=== PATIENT | female | born 1990 | race Caucasian/White ===

== ENCOUNTER 2017-09-16 01:12 | Emergency (ER) | payer OTHER ==
[2017-09-16] MEDS ORDERED: IBUPROFEN 600 MG TABLET (FP) PO ONE ×2 (02:11→02:48)
--- NOTE | 2017-09-16 02:14 | PDOC ---
History of Present Illness - General Chief Complaint: Ear Problem Stated Complaint: EAR PAIN Time Seen by Provider: 09/16/17 01:58 History Source: Patient - History of Present Illness Initial Comments: 09/16/17 02:37 26-year-old female complaining of left ear pain and nasal congestion with throat pain 1 day. Patient reports fever tmax 101 at home. patient put hylands ear drops with minimal imporvement in pain. Past History - Past Medical History Allergies/Adverse Reactions: Allergies Allergy/AdvReac Type Severity Reaction Status Date / Time Sulfa (Sulfonamide Allergy Intermediate Hives Verified 09/16/17 02:19 Antibiotics) Home Medications: Ambulatory Orders No Home Medications 0 dose .ROUTE UTDICT 08/02/13 Amoxicillin - [Amoxicillin 875mg Tablet -] 875 mg PO BID #20 tablet 09/16/17 Ibuprofen 600 mg PO QID PRN #20 tablet 09/16/17 Asthma: No Cancer: No Cardiac Disorders: No Diabetes: No HTN: No Seizures: No Thyroid Disease: No - Reproductive History (#): 1 Para: 1 Cervical CA: No Dysfunctional Uterine Bleeding: No Ectopic : No Endometrial CA: No Polycystic Ovaries: No Therapeutic (s) & number: No Tubal Ligation: No Spontaneous : 0 - Suicide/Smoking/Psychosocial Hx Smoking Status: No Smoking History: Never smoked Number of Cigarettes Smoked Daily: 0 Hx Alcohol Use: No Drug/Substance Use Hx: No Hx Substance Use Treatment: No *Physical Exam - Vital Signs 09/16/17 02:41 Last Vital Signs Temp Pulse Resp BP Pulse Ox 99.5 F 71 19 129/75 100 09/16/17 01:45 09/16/17 01:45 09/16/17 01:45 09/16/17 01:45 09/16/17 01:45 - Physical Exam General Appearance: Yes: Appropriately Dressed HEENT: positive: TM Bulging, TM Dull (left TM erythema, ) Cardiovascular: positive: Regular Rhythm, Regular Rate *DC/Admit/Observation/Transfer Diagnosis at time of Disposition: Left otitis media Qualifiers: Otitis media type: suppurative Chronicity: acute Recurrence: not specified as recurrent Spontaneous tympanic membrane rupture: without spontaneous rupture Qualified Code(s): H66.002 - Acute suppurative otitis media without spontaneous rupture of ear drum, left ear - Discharge Dispostion Disposition: HOME Condition at time of disposition: Fair - Prescriptions Prescriptions: Amoxicillin - [Amoxicillin 875mg Tablet -] 875 mg PO BID #20 tablet Ibuprofen 600 mg PO QID PRN #20 tablet PRN Reason: Pain - Referrals Referrals: Niki Bowen MD [Primary Care Provider] - Call tomorrow - Patient Instructions Printed Discharge Instructions: Middle Ear Infection Additional Instructions: Take ibuprofen as prescribed Take amoxicillin as prescribed Follow up with you doctor as soon as possible - Post Discharge Activity Forms/Work/School Notes: Back to Work
[2017-09-16 02:21] VITALS: BP 129/75; PULSE 71; TEMP 99.5; BMI 34.5
== END 2017-09-16 03:13 | disposition home or self-care (01) ==
LOC: JER 01:12
DX: H66.002 Acute suppurative otitis media without spontaneous rupture of ear drum, left ear (principal)
CPT/HCPCS: 87070; 87430; 99281-25

== ENCOUNTER 2018-09-25 09:07 | Emergency (ER) | payer OTHER ==
[2018-09-25 09:15] VITALS: TEMP 97.9; BMI 33.6
--- NOTE | 2018-09-25 09:31 | PDOC ---
History of Present Illness - General Chief Complaint: Vaginal Bleeding Stated Complaint: 8 WK PREG / BLEED Time Seen by Provider: 09/25/18 09:20 History Source: Patient Exam Limitations: No Limitations - History of Present Illness Initial Comments: 09/25/18 09:27 27F at 8-9 weeks by LMP w/o confirmed IUP presents with 3 hours of vaginal spotting and lower abdominal cramping w/o vomiting, other abd pain, fever, chills, CP, SOB. Pt endorses nausea but states she had it during her previous . She denies blood clots. Past History - Past Medical History Allergies/Adverse Reactions: Allergies Allergy/AdvReac Type Severity Reaction Status Date / Time Sulfa (Sulfonamide Allergy Intermediate Hives Verified 09/25/18 09:08 Antibiotics) Asthma: No Cancer: No Cardiac Disorders: No Diabetes: No HTN: No Seizures: No Thyroid Disease: No - Reproductive History (#): 1 Para: 1 Cervical CA: No Dysfunctional Uterine Bleeding: No Ectopic : No Endometrial CA: No Polycystic Ovaries: No Therapeutic (s) & number: No Tubal Ligation: No Spontaneous : 0 - Suicide/Smoking/Psychosocial Hx Smoking Status: No Smoking History: Never smoked Have you smoked in the past 12 months: No Number of Cigarettes Smoked Daily: 0 Hx Alcohol Use: No Drug/Substance Use Hx: No Hx Substance Use Treatment: No Review of Systems - Review of Systems Able to Perform ROS?: Yes Comments:: 09/25/18 09:29 GENERAL/CONSTITUTIONAL: No fever or chills. No weakness. HEAD, EYES, EARS, NOSE AND THROAT: No change in vision. No ear pain or discharge. No sore throat. CARDIOVASCULAR: No chest pain, palpitations, or lightheadedness. RESPIRATORY: No cough, wheezing, shortness of breath, or hemoptysis. GASTROINTESTINAL: + for lower abdominal cramping and nausea. No vomiting, diarrhea, or constipation. GENITOURINARY: + for vaginal bleeding. No dysuria, frequency, hematuria, or change in urination. MUSCULOSKELETAL: No joint or muscle swelling or pain. No neck or back pain. SKIN: No rash or lesions. NEUROLOGIC: No headache, numbness, tingling, focal weakness, loss of consciousness, or change in strength/sensation. Is the patient limited Kazakh proficient: No *Physical Exam - Vital Signs Last Vital Signs Temp Pulse Resp BP Pulse Ox 97.9 F 94 H 16 120/72 98 09/25/18 09:09 09/25/18 09:09 09/25/18 09:09 09/25/18 09:09 09/25/18 09:09 - Physical Exam Comments: 09/25/18 09:29 GENERAL: Well developed, well nourished. Awake and alert. No acute distress. HEENT: Normocephalic, atraumatic. Hearing grossly normal. Moist mucous membranes. PERRLA, EOMI. No conjunctival pallor. Sclera are non-icteric. NECK: Supple. Full ROM. No JVD. CARDIOVASCULAR: Regular rate and rhythm. No murmurs, rubs, or gallops. PULMONARY: No evidence of respiratory distress. Lungs clear to auscultation bilaterally. No wheezing, rales or rhonchi. ABDOMINAL: Soft. Non-tender. Non-distended. No rebound or guarding. GENITOURINARY: No CVA tenderness bilaterally. PELVIC: Normal external genitalia. External os closed. Mild dark blood noted on glove. Midline TTP. MUSCULOSKELETAL: Normal range of motion at all joints. No bony deformities or tenderness. EXTREMITIES: No cyanosis. No clubbing. No edema. No calf tenderness or swelling. SKIN: Warm and dry. Normal capillary refill. No rashes. No jaundice. NEUROLOGICAL: Alert, awake, appropriate. Cranial nerves 2-12 grossly intact. Normal speech. Gait is normal without ataxia. PSYCHIATRIC: Cooperative. Good eye contact. Appropriate mood and affect. ED Treatment Course - LABORATORY CBC & Chemistry Diagram: 09/25/18 10:04 09/25/18 10:04 - RADIOLOGY Radiology Studies Ordered: Category Date Time Status TRANSVAGINAL US PREG [US] Stat Ultrasound 09/25/18 09:27 Ordered Medical Decision Making - Medical Decision Making 09/25/18 09:30 27F at 8-9 weeks without confirmed IUP presents with 3 hours of vaginal spotting concerning for AB. Will obtain blood, urine, and US imaging. Pt comfortable appearing. 09/25/18 11:45 CBC, CMP, UA negative. US shows live fetus w/ IUP. Will d/c with [facility] f/u. 09/25/18 12:30 Dr. Mccray informed that pt is in our ED and pt has appointment Nils at 3pm. *DC/Admit/Observation/Transfer Diagnosis at time of Disposition: Vaginal bleeding - Discharge Dispostion Disposition: HOME Condition at time of disposition: Stable Decision to Admit order: No - Referrals Referrals: Gi Mckoy MD [Primary Care Provider] - - Patient Instructions Printed Discharge Instructions: DI for Vaginal Bleeding During Additional Instructions: Your ER visit is not complete until your follow up with your primary care physician and OBGYN. Please follow up with your primary care physician and OBGYN in 1-2 days. Please return to the ER if you have any signs or symptoms of chest pain, shortness of breath, uncontrollable fever, chills, nausea, vomiting, numbness, tingling, or weakness in any part of your body, changes in vision, or slurred speech. Please return to the ER if symptoms persist, worsen, or new symptoms arise. - Post Discharge Activity
[2018-09-25 10:42] LABS: BASO % 0.6 % (0-2.0); EOS % 1.8 % (0-4.5); HEMATOCRIT 40.7 % (32.4-45.2); HEMOGLOBIN 13.7 GM/dL (10.7-15.3); LYMPH % 18.6 % (8-40); MCH 30.9 pg (25.7-33.7); MCHC 33.7 g/dl (32.0-36.0); MEAN CELL VOLUME 91.6 fl (80-96); MEAN PLT VOLUME 8.7 fl (7.5-11.1); MONO % 5.6 % (3.8-10.2); NEUT % 73.4 % (42.8-82.8); PLATELET COUNT 277 K/MM3 (134-434); RBC 4.44 M/mm3 (3.60-5.2); RDW 12.6 % (11.6-15.6); WHITE BLOOD COUNT 8.4 K/mm3 (4.0-10.0)
[2018-09-25 11:12] VITALS: BP 110/63; PULSE 69
[2018-09-25 11:26] LABS: URINE APPEARANCE CLEAR; URINE BILIRUBIN NEGATIVE (NEGATIVE); URINE COLOR YELLOW; URINE GLUCOSE (UA) NEGATIVE (NEGATIVE); URINE KETONE NEGATIVE (NEGATIVE); URINE LEUK ESTERASE NEGATIVE (NEGATIVE); URINE NITRITE NEGATIVE (NEGATIVE); URINE PROTEIN NEGATIVE (NEGATIVE); URINE UROBILINOGEN 0.2 mg/dL (0.2-1.0)
[2018-09-25 11:29] LABS: ALBUMIN 3.6 g/dl (3.4-5.0); BILIRUBIN,TOTAL 0.3 mg/dL (0.2-1); BLOOD UREA NITROGEN 10.4 mg/dL (7-18); CALCIUM 8.7 mg/dL (8.5-10.1); CREATININE 0.5 mg/dL (0.55-1.3); POTASSIUM 4.1 mmol/L (3.5-5.1); TOT PROT 6.9 g/dl (6.4-8.2)
--- NOTE | 2018-09-25 12:24 | PDOC ---
Documentation entered by Teresita Cochran SCRIBE, acting as scribe for Clau Mclain MD. Clau Mclain MD: This documentation has been prepared by the Dim[employer] merchant Xhesika, SCRIBE, under my direction and personally reviewed by me in its entirety. I confirm that the documentation accurately reflects all work, treatment, procedures, and medical decision making performed by me. Attending Attestation - Resident Resident Name: JackyederHayden - ED Attending Attestation I have performed the following: I have examined & evaluated the patient, The case was reviewed & discussed with the resident, I agree w/resident's findings & plan, Exceptions are as noted - HPI HPI: 09/25/18 09:37 The patient is a 27 year old female, , 8-9 weeks , with no significant PMH of who presents to the emergency department with 3 hours of vaginal bleeding and lower abdominal cramping. The patient states she endorses nausea, secondary to her symptoms. The patient denies blood clots, abdominal pain, chest pain, shortness of breath , headache and dizziness. Denies fever, chills, vomiting, diarrhea and constipation. Denies dysuria, frequency, urgency. Allergies: Sulfa - Physicial Exam PE: GENERAL: Awake, alert, and fully oriented, in no acute distress HEAD: No signs of trauma EYES: PERRLA, EOMI, sclera anicteric, conjunctiva clear ENT: Auricles normal inspection, hearing grossly normal, nares patent, oropharynx clear without exudates. Moist mucosa NECK: Normal ROM, supple, no lymphadenopathy, JVD, or masses LUNGS: Breath sounds equal, clear to auscultation bilaterally. No wheezes, and no crackles HEART: Regular rate and rhythm, normal S1 and S2, no murmurs, rubs or gallops ABDOMEN: Soft, nontender, normoactive bowel sounds. No guarding, no rebound. No masses EXTREMITIES: Normal range of motion, no edema. No clubbing or cyanosis. No cords, erythema, or tenderness NEUROLOGICAL: Cranial nerves II through XII grossly intact. Normal speech, normal gait. Motor and sensation intact SKIN: Warm, Dry, normal turgor, no rashes or lesions noted. - Medical Decision Making Pt with +IUP on ultrasound, +FHM. Stable for f/u with manager commercial as scheduled in 3 days.
== END 2018-09-25 12:39 | disposition home or self-care (01) ==
LOC: JER 09:07
DX: O26.891 Other specified pregnancy related conditions, first trimester (principal); Z3A.08 8 weeks gestation of pregnancy; N93.9 Abnormal uterine and vaginal bleeding, unspecified
CPT/HCPCS: 36415; 76801-TC; 80053; 81003; 84702; 85025; 86850; 86900; 86901; 87086; 99282-25

== ENCOUNTER 2019-04-27 15:10 | Inpatient (IN) | payer OTHER ==
[2019-04-27] MEDS: ELECTROLYTE-148 SOLN 1,000 ML IV SCH (16:30)
--- NOTE | 2019-04-27 16:40 | HP ---
Past Medical History - Primary Care Physician PCP:: Tiffany Meraz - Admission Chief Complaint: 28 yrs 38.5/7 weeks by sono, 38.4/7 weeks by dates admotted in labor, onset LP since 7.30 AM . pt in abor History of Present Illness: pnc at , [facility] . wt gain 8 lbs apnel : 08/28/18 : gc/ct neg, O Pos, Varicella immune, Measles immune, Rubella immune, Hbsag neg, Hep c neg, rpr nr, Hiv neg , lead neg, Hgb sickle neg , Cf screen neg 01/2019 PNGT 105, Quantiferon neg gc/ct neg, GBS neg, Hiv ne , h/h 13.7/40.9 plt 265 h/o urti during pregn treated with zpack , chest Xray neg US done by [facility] for growth . NT screen/AFP neg , anatomy sono wnl sono reviewed History Source: Patient, Medical Record Limitations to Obtaining History: No Limitations - Past Medical History Cardiovascular: No: HTN, Murmur Pulmonary: Yes: Other (h/o urti rx with zpack during pregn , chest Xray neg). No: Asthma Gastrointestinal: No: Gastritis, GERD Hepatobiliary: No: Hepatitis B, Hepatitis C Renal/: No: UTI Reproductive: Yes: Other (h/o abn pap in past) ...: 2 ...Para: 1 ( 06/13/11 , 8'6" , epidural at [facility] ) ...Term: 1 ...LMP: 07/31/18 ... Weeks Gestation by Dates: 38.4 ...EDC by Dates: 05/07/19 ...EDC by Sono: 05/06/19 (38.5 weeks by sono ) Heme/Onc: No: Anemia Infectious Disease: Yes: Other (h/o hpv infection) Psych: No: Addictions, Anxiety, Bipolar, Depression, Panic, Psychosis, Schizophrenia, Other Endocrine: No: Diabetes Insipidus, Diabetes Mellitus, Hyperthyroidism, Hypothyroidism - Past Surgical History Past Surgical History: Yes: None Hx Myomectomy: No Hx Transabdominal Cerclage: No - Smoking History Smoking history: Never smoked Have you smoked in the past 12 months: No Aproximately how many cigarettes per day: 0 - Alcohol/Substance Use Hx Alcohol Use: No History of Substance Use: reports: None Home Medications - Allergies Allergies/Adverse Reactions: Allergies Allergy/AdvReac Type Severity Reaction Status Date / Time Sulfa (Sulfonamide Allergy Intermediate Hives Verified 09/25/18 09:08 Antibiotics) - Home Medications Home Medications: Ambulatory Orders Ferrous Sulfate [Iron] 325 mg PO DAILY 04/27/19 Vit No.124/Iron/Folic [ Vitamin Tablet] 1 each PO DAILY Physical Exam - Maternity Constitutional: Yes: Well Nourished, Obese Eyes: Yes: WNL HENT: Yes: WNL, Normocephalic Neck: Yes: WNL Cardiovascular: Yes: WNL, Regular Rate and Rhythm Lungs: Clear to auscultation Breast(s): Yes: WNL - Abdominal Exam/OB Fundal Height: 40 Number of Fetuses: Single Presentation: Vertex Contractions: Yes Regularity: Irregular (3-5 min) Intensity: Moderate Monitor Mode: External Heart Rate (range): 130 Heart Rate Location: [facility] Category: I Accelerations: Uniform Decelerations: None - Vaginal Exam/OB Vaginal Bleediing: No Speculum Exam: No Dilatation (cm): 3-4 Effacement (%): 70 Amniotic Membrane Status: Intact Presentation: Vertex/Position Station: -3 - Physical Exam Musculoskeletal: Yes: WNL Extremities: Yes: WNL. No: Calf Tenderness Edema: Yes Edema: LLE: 1+, RLE: 1+ Integumentary: Yes: WNL Deep Tendon Reflex Grade: Normal +2 ...Motor Strength: WNL Psychiatric: Yes: WNL, Alert, Oriented - Labs Lab Results: Laboratory Tests 04/27/19 04/27/19 04/27/19 17:30 17:30 17:30 WBC 11.3 H Hgb 14.7 Hct 43.4 Plt Count 188 D Absolute Neuts (auto) 8.2 H Neutrophils % 71.9 Lymphocytes % 19.6 Monocytes % 5.8 Eosinophils % 2.0 PT with INR 10.60 INR 0.90 PTT (Actin FS) 27.4 Sodium 139 Potassium 4.8 Chloride 107 Carbon Dioxide 26 BUN 5.8 L Creatinine 0.5 L Random Glucose 76 Calcium 9.2 Problem List - Problems (1) with 38 completed weeks gestation Code(s): Z3A.38 - 38 WEEKS GESTATION OF (2) Labor established Code(s): DWD9847 - Assessment/Plan 28 yrs , 38.5/7 weeks by sono, 38,4/7 weeks by dates , gbs neg admitted in labor Plan may ambulate requests epidural labor analgesia trial vaginal delivery
[2019-04-27 17:16] VITALS: BMI 34.7
[2019-04-27 17:43] LABS: BASO % 0.7 % (0-2.0); HEMATOCRIT 43.4 % (32.4-45.2); HEMOGLOBIN 14.7 GM/dL (10.7-15.3); LYMPH % 19.6 % (8-40); MCH 30.5 pg (25.7-33.7); MCHC 33.9 g/dl (32.0-36.0); MEAN CELL VOLUME 89.9 fl (80-96); MEAN PLT VOLUME 9.4 fl (7.5-11.1); MONO % 5.8 % (3.8-10.2); NEUT % 71.9 % (42.8-82.8); PLATELET COUNT 188 K/MM3 (134-434); RBC 4.82 M/mm3 (3.60-5.2); RDW 13.3 % (11.6-15.6); WHITE BLOOD COUNT 11.3 K/mm3 (4.0-10.0)
[2019-04-27 17:56] LABS: INR 0.9 (0.83-1.09); PROTHROMBIN TIME (PATIENT) 10.6 SEC (9.7-13.0)
[2019-04-27 17:58] LABS: ACTIVATED PTT 27.4 SECONDS (25.2-36.5)
[2019-04-27 18:07] LABS: BLOOD UREA NITROGEN 5.8 mg/dL (7-18); CALCIUM 9.2 mg/dL (8.5-10.1); CREATININE 0.5 mg/dL (0.55-1.3); POTASSIUM 4.8 mmol/L (3.5-5.1)
[2019-04-27] MEDS ORDERED: FENTANYL/BUPIVACAINE/NS/PF - PCEA - 50 ML DISP.SYRIN EP ONE (20:19)
[2019-04-27] MEDS ORDERED: NALOXONE HCL 0.4 MG/ML VIAL IVPUSH PRN (20:22)
[2019-04-27] MEDS ORDERED: LIDO 2%/EPI 1:200000 PRESRVFRE (20 ML SDVIAL) ONE (20:23)
[2019-04-27] MEDS ORDERED: FENTANYL/BUPIVACAINE/NS/PF - PCEA - 50 ML DISP.SYRIN EP SCH (20:30)
[2019-04-27] MEDS ORDERED: ePHEDrine SULFATE 50 MG/1 ML AMPULE ONE (20:43)
[2019-04-27] MEDS ORDERED: ONDANSETRON 4 MG/2 ML VIAL ONE (20:47)
--- NOTE | 2019-04-27 22:59 | PN ---
Progress Note, Labor Vaginal Exam #1 Labor Exam Date: 04/27/19 Labor Exam Time: 20:20 Heart Rate (range): 150 Dilatation: 6- Effacement (%): 80 Amniotic Membrane Status: Intact Presentation: Vertex/Position Station: -2 Remarks: fhr cat-1 . uc 2-4 min 20.30 hr epidural given Selected Entries 04/27/19 20:30 Pulse Rate 84 Blood Pressure 131/78 Vaginal Exam #2 Labor Exam Date: 04/27/19 Labor Exam Time: 22:40 Heart Rate (range): 150-160 Dilatation: 6-7 Effacement (%): 90 Amniotic Membrane Status: Ruptured (AROM clear) Station: -2 (2/-1) Remarks: fhr cat-1 uc 2-4 min Selected Entries 04/27/19 04/27/19 21:45 22:00 Temperature 98.2 F Pulse Rate 79 Blood Pressure 124/76 Vaginal Exam #3 Labor Exam Date: 04/28/19 Labor Exam Time: 01:15 Heart Rate (range): 150-160 Dilatation: 7-8 Effacement (%): 90 Amniotic Membrane Status: Ruptured Presentation: Vertex/Position Station: -1 (-1/0) Remarks: fhr cat-1 uc 2-3 min Selected Entries 04/28/19 04/28/19 00:45 01:00 Temperature 98.4 F Pulse Rate 80 Blood Pressure 116/70 Vaginal Exam #4 Labor Exam Date: 04/28/19 Labor Exam Time: 02:55 Heart Rate (range): 150 Dilatation: 10 Effacement (%): 100 Amniotic Membrane Status: Ruptured Presentation: Vertex/Position Station: +1 (+1/+2) Remarks: fhr cat-1 uc q2 min wait for natural descent before encouraging to push Selected Entries 04/28/19 04/28/19 01:30 02:00 Temperature 98.0 F Pulse Rate 77 Blood Pressure 109/69
[2019-04-27] MEDS ORDERED: OXYTOCIN 30 UNITS in 0.9% NS 30 UNIT/500 ML INFUS.BAG IVPB ONE (23:01)
[2019-04-27] MEDS ORDERED: OXYTOCIN 30 UNITS in 0.9% NS 30 UNIT/500 ML INFUS.BAG IVPB SCH (23:15)
[2019-04-28] MEDS ORDERED: FENTANYL/BUPIVACAINE/NS/PF - PCEA - 50 ML DISP.SYRIN EP ONE (00:51)
[2019-04-28] MEDS ORDERED: OXYTOCIN 20 UNITS in 0.9% NS 20 UNIT/1,000 ML INFUS.BAG IV ONE (03:09)
[2019-04-28] MEDS ORDERED: OXYTOCIN 20 UNITS in 0.9% NS 20 UNIT/1,000 ML INFUS.BAG IV SCH (04:00)
[2019-04-28] MEDS ORDERED: BENZOCAINE 28 GM HEMORRHOIDAL OINTMENT TP PRN (04:00)
[2019-04-28] MEDS ORDERED: METHYLERGONOVINE MALEATE 0.2 MG/1 ML AMP IM PRN (04:00)
[2019-04-28] MEDS ORDERED: WITCH HAZEL 50% (TUCKS) 40 PAD/JAR PAD TP PRN (04:00)
[2019-04-28] MEDS ORDERED: oxyCODONE HCL 5 MG TABLET PO PRN (04:00)
[2019-04-28] MEDS ORDERED: BISACODYL 10 MG SUPP.RECT RC PRN (04:00)
[2019-04-28] MEDS ORDERED: BENZOCAINE 20% 57 GM BOTTLE TP PRN (04:00)
--- NOTE | 2019-04-28 04:14 | PN ---
Delivery - Delivery Vaginal Delivery: No Problems, Spontaneous (, baby boy, vx, baldemar position, shoulder delievered without difficulty, immediate oral & nasal suction was done .cord blood collected, trivascuar cord. Placenta & membranes deievered completely . perineum & vagina was intact) Type of Anesthesia: Epidural EBL (cc): 250 Delivery, Single - Stages of Labor Date 1st Stage Initiatied: 04/27/19 Time 1st Stage Initiated: 07:30 Date 2nd Stage Initiated: 04/28/19 Time 2nd Stage Initiated: 02:55 Date of Delivery: 04/28/19 Time of Delivery: 03:47 Date Placenta Delivered: 04/28/19 Time Placenta Delivered: 03:51 Placenta: Yes: Spontaneous, Uterine Exploration - Condition of Infant Bradley Linebacker Crewmember/Stone Polisher Hand Present: No Infant Gender: Male Weight: 7 lb 11 oz Position: Left, OA Total Hours ROM (Hrs/Mins): 5hrs 11min - 1 Minute Total Score: 9 5 Minutes Total Score: 9 - Benavides Feeding Plan Initial Plan: Exclusive throughout hospitalization Remarks - Remarks Remarks: 28 yrs , 38.5/7 weeks by sono admitted in labor pnc at [address] [place] [address] gbs neg pitocin augmentation was given intrapartum course uneventful
[2019-04-28] MEDS: FERROUS SO4 325 MG TABLET (FP) PO SCH ×2 (08:52→17:36)
[2019-04-28] MEDS: ACETAMINOPHEN 325 MG TABLET (FP) PO PRN ×2 (09:03→15:44)
[2019-04-28] MEDS: IBUPROFEN 600 MG TABLET (FP) PO PRN ×2 (09:04→15:43)
[2019-04-28] MEDS: PRENATAL VITAMINS W/ FOLIC ACID TABLET (FP) PO SCH (10:35)
[2019-04-28] MEDS: ELECTROLYTE-148 SOLN 1,000 ML IV SCH (17:36)
[2019-04-29] MEDS: IBUPROFEN 600 MG TABLET (FP) PO PRN ×3 (03:36→16:40)
[2019-04-29] MEDS: ACETAMINOPHEN 325 MG TABLET (FP) PO PRN ×4 (03:36→16:40)
--- NOTE | 2019-04-29 09:15 | PN ---
Post Progress Note - Subjective Subjective: Doing well. No fevers/chills. Lochia < menses. . Ambulating. Voiding Type of Delivery: Vital Signs: Vital Signs Temperature 97.7 F 04/28/19 22:00 Pulse Rate 88 04/28/19 22:00 Respiratory Rate 18 04/28/19 22:00 Blood Pressure 112/76 04/28/19 22:00 O2 Sat by Pulse Oximetry (%) 100 04/28/19 05:25 Uterus: Yes: Fundus below umbilicus Abdomen/GI: Yes: Abdomen soft, Passing flatus, Tolerating PO Lochia: Yes: Rubra Lochia, amount: Small Extremities: Yes: Calves non-tender Activity: Ambulating - Labs Labs: CBC WBC 11.3 K/mm3 (4.0-10.0) H 04/27/19 17:30 RBC 4.82 M/mm3 (3.60-5.2) 04/27/19 17:30 Hgb 14.7 GM/dL (10.7-15.3) 04/27/19 17:30 Hct 43.4 % (32.4-45.2) 04/27/19 17:30 MCV 89.9 fl (80-96) 04/27/19 17:30 MCH 30.5 pg (25.7-33.7) 04/27/19 17:30 MCHC 33.9 g/dl (32.0-36.0) 04/27/19 17:30 RDW 13.3 % (11.6-15.6) 04/27/19 17:30 Plt Count 188 K/MM3 (134-434) D 04/27/19 17:30 MPV 9.4 fl (7.5-11.1) 04/27/19 17:30 Absolute Neuts (auto) 8.2 K/mm3 (1.5-8.0) H 04/27/19 17:30 Neutrophils % 71.9 % (42.8-82.8) 04/27/19 17:30 Lymphocytes % 19.6 % (8-40) 04/27/19 17:30 Monocytes % 5.8 % (3.8-10.2) 04/27/19 17:30 Eosinophils % 2.0 % (0-4.5) 04/27/19 17:30 Basophils % 0.7 % (0-2.0) 04/27/19 17:30 Nucleated RBC % 0 % (0-0) 04/27/19 17:30 Assessment/Plan 28yo s/p , PPD#1 Routine PP care Labs reviewed OOB, ambulate D/C to home García Quigley MD
[2019-04-29] MEDS: FERROUS SO4 325 MG TABLET (FP) PO SCH ×2 (09:56→16:47)
[2019-04-29] MEDS: PRENATAL VITAMINS W/ FOLIC ACID TABLET (FP) PO SCH (09:56)
[2019-04-29 10:48] LABS: BASO % 0.7 % (0-2.0); EOS % 3.2 % (0-4.5); HEMATOCRIT 43.5 % (32.4-45.2); HEMOGLOBIN 14.6 GM/dL (10.7-15.3); LYMPH % 20.7 % (8-40); MCH 30.6 pg (25.7-33.7); MCHC 33.5 g/dl (32.0-36.0); MEAN CELL VOLUME 91.5 fl (80-96); MEAN PLT VOLUME 10.1 fl (7.5-11.1); NEUT % 70.4 % (42.8-82.8); PLATELET COUNT 193 K/MM3 (134-434); RBC 4.76 M/mm3 (3.60-5.2); RDW 13.4 % (11.6-15.6); WHITE BLOOD COUNT 10.5 K/mm3 (4.0-10.0)
[2019-04-29] MEDS: SENNOSIDES/DOCUSATE COMBO (SENNA PLUS) TABLET (UD) PO PRN ×2 (16:48→22:57)
[2019-04-29] MEDS ORDERED: SENNOSIDES/DOCUSATE COMBO (SENNA PLUS) TABLET (UD) PO PRN (22:00)
[2019-04-30] MEDS: ACETAMINOPHEN 325 MG TABLET (FP) PO PRN ×2 (02:44→07:53)
[2019-04-30] MEDS: IBUPROFEN 600 MG TABLET (FP) PO PRN ×2 (02:44→07:53)
--- NOTE | 2019-04-30 07:29 | DS ---
Physical Exam-COPYWRITER Vital Signs: Vital Signs Temperature 98.8 F 04/29/19 22:00 Pulse Rate 94 H 04/29/19 22:00 Respiratory Rate 04/29/19 22:00 Blood Pressure 115/70 04/29/19 22:00 O2 Sat by Pulse Oximetry (%) 100 04/28/19 05:25 Constitutional: Yes: Well Nourished, No Distress, Calm Eyes: Yes: WNL, Conjunctiva Clear, EOM Intact HENT: Yes: WNL, Atraumatic, Normocephalic Neck: Yes: WNL, Supple, Trachea Midline Cardiovascular: Yes: WNL, Regular Rate and Rhythm Respiratory: Yes: Diminished Gastrointestinal: Yes: WNL Renal/: Yes: WNL ....Post : Yes: Uterus firm, Uterus non-tender, Slight lochia rubra Breast(s): Yes: WNL Musculoskeletal: Yes: WNL Extremities: Yes: WNL Edema: No Integumentary: Yes: WNL Neurological: Yes: WNL, Alert, Oriented ...Motor Strength: WNL Psychiatric: Yes: WNL, Alert, Oriented Labs: CBC, BMP 04/29/19 10:12 04/27/19 17:30 Delivery - Delivery Vaginal Delivery: No Problems, Spontaneous (, baby boy, vx, baldemar position, shoulder delievered without difficulty, immediate oral & nasal suction was done .cord blood collected, trivascuar cord. Placenta & membranes deievered completely . perineum & vagina was intact) Type of Anesthesia: Epidural Episiotomy/Laceration: None EBL (cc): 250 Delivery, Single - Stages of Labor Date 1st Stage Initiatied: 04/27/19 Time 1st Stage Initiated: 07:30 Date 2nd Stage Initiated: 04/28/19 Time 2nd Stage Initiated: 02:55 Date of Delivery: 04/28/19 Time of Delivery: 03:47 Time Placenta Delivered: 03:51 Placenta: Yes: Spontaneous, Uterine Exploration - Condition of Infant Citrix Engineer/Coat Ironer Hand Present: No Infant Gender: Male Weight: 7 lb 11 oz Position: Left, OA Total Hours ROM (Hrs/Mins): 5hrs 11min - 1 Minute Total Score: 9 5 Minutes Total Score: 9 - Feeding Plan Initial Plan: Exclusive throughout hospitalization Discharge Summary Problems reviewed: Yes Reason For Visit: ADMIT C SECTION Current Active Problems Labor established (Acute) Normal spontaneous vaginal delivery (Acute) with 38 completed weeks gestation (Acute) Procedures: Principal: Hospital Course: no complication Health Concerns: obesity Plan of Treatment: wt loss and exercise, low carb diet Goals: follow up for visit in [facility] care cont. breast feeding Condition: Stable - Instructions Diet, Activity, Other Instructions: Post Instructions DIET: Continue good diet high in protein, calcium, and iron rich foods. Drink at least eight (8) glasses of water daily in addition to other fluids. ct_ Regular diet MEDICATIONS: Continue vitamins and iron as previously directed. Motrin and Tylenol may be taken for minor discomfort. ACTIVITY: Mild to moderate exercise may be started in two (2) weeks. Take frequent rest periods. Resume normal activity after six (6) week check up. WOUND CARE OF OPERATIVE SITE: Continue use of perineal bottle until vaginal discharge stops. Keep area clean. Shower daily. Keep abdominal wound dry. Report any drainage or redness to physician. Tub baths, tampons and douches are not permitted for [address] Breast feeding & or _ Bottle feeding BREAST CARE: (For those that are not ): If engorgement occurs: Wear tight fitting bra. Take Tylenol or Motrin for pain. Apply cold packs (ice in bags to each breast ) FAMILY PLANNING: There are many control alternatives to pursue and they should be discussed at your first office visit. You may resume sexual activity after your six (6) week check up. (Remember, is not a contraceptive) NEXT PHYSICIAN APPOINTMENT: Be certain to call for a three (3) week appointment, unless otherwise directed. Call Clinic or got to Emergency Dept if you have any of the following: Heavy vaginal bleeding Painful urination Leg pain Unusual odor noted to vaginal bleeding High fever Red streaking noted on breast Referrals: Tiffany Meraz MD [Staff Physician] - Disposition: HOME - Home Medications Comprehensive Discharge Medication List: Ambulatory Orders Ferrous Sulfate [Iron] 325 mg PO DAILY 04/27/19 Vit No.124/Iron/Folic [ Vitamin Tablet] 1 each PO DAILY Acetaminophen [Tylenol .Regular Strength -] 650 mg PO Q3H PRN tablet 04/28/19 Benzocaine [Americaine 20% [place] -] 1 spray TP PRN PRN bottle 04/28/19 Ferrous Sulfate [Feosol] 325 mg PO BIDWM tab 04/28/19 Ibuprofen [Motrin -] 200 mg PO Q4H PRN tablet 04/28/19 Vitamins (Sjr) - 1 tab PO DAILY tablet 04/28/19 Witch Lillian 50% (Tucks) [Tucks Pads -] 1 pad TP PRN PRN pad 04/28/19 Ibuprofen 600 mg PO Q6H PRN #30 tablet 04/29/19
[2019-04-30] MEDS: FERROUS SO4 325 MG TABLET (FP) PO SCH (07:43)
[2019-04-30] MEDS: PRENATAL VITAMINS W/ FOLIC ACID TABLET (FP) PO SCH (09:53)
[2019-04-30 10:07] VITALS: BP 108/60; PULSE 79; TEMP 97.6
== END 2019-04-30 15:20 | disposition home or self-care (01) | DRG 560 ==
LOC: JDEL 15:10 → JLDR 16:00 → J3W 04-28 05:54
PROVIDERS: ADMIT Obstetrics & Gynecology; ATTEND Obstetrics & Gynecology
PROC: 10907ZC Drainage of Amniotic Fluid, Therapeutic from Products of Conception, Via Natural or Artificial Opening (ICD-10-PCS; principal; 2019-04-28)
PROC: 10E0XZZ Delivery of Products of Conception, External Approach (ICD-10-PCS; 2019-04-28)
DX: O80 Encounter for full-term uncomplicated delivery (principal); Z37.0 Single live birth; Z3A.38 38 weeks gestation of pregnancy
CPT/HCPCS: 36415; 59409; 80048; 85025; 85610; 85730; 86593; 86850; 86900; 86901

== ENCOUNTER 2021-05-16 08:13 | Inpatient (IN) | payer OTHER ==
[2021-05-16 09:29] VITALS: BMI 41.1
[2021-05-16] MEDS ORDERED: OXYTOCIN 20 UNITS in 0.9% NS 20 UNIT/1,000 ML INFUS.BAG IV ONE ×2 (11:43→15:28)
[2021-05-16] MEDS ORDERED: LIDOCAINE HCL 1% PRESERVATIVE FREE - 30ML VIAL ONE (11:43)
[2021-05-16] MEDS ORDERED: ELECTROLYTE-148 SOLN 1,000 ML IV SCH (12:00)
[2021-05-16 12:08] LABS: BASO % 0.4 % (0-2.0); EOS % 1.2 % (0-4.5); HEMATOCRIT 40.9 % (32.4-45.2); HEMOGLOBIN 13.3 GM/dL (10.7-15.3); LYMPH % 16.8 % (8-40); MCH 29.5 pg (25.7-33.7); MCHC 32.5 g/dl (32.0-36.0); MEAN CELL VOLUME 90.9 fl (80-96); MEAN PLT VOLUME 11.2 fl (7.5-11.1); MONO % 4.5 % (3.8-10.2); NEUT % 77.1 % (42.8-82.8); PLATELET COUNT 166 10^3/uL (134-434); RBC 4.49 M/mm3 (3.60-5.2); RDW 13.7 % (11.6-15.6); WHITE BLOOD COUNT 8.4 K/mm3 (4.0-10.0)
[2021-05-16 12:27] LABS: INR 0.9 (0.83-1.09); PROTHROMBIN TIME (PATIENT) 10.3 SEC (9.7-13.0)
[2021-05-16 12:35] LABS: CALCIUM 8.3 mg/dL (8.5-10.1)
[2021-05-16 12:36] LABS: BLOOD UREA NITROGEN 10.3 mg/dL (7-18)
[2021-05-16 12:39] LABS: CREATININE 0.6 mg/dL (0.55-1.3)
[2021-05-16] MEDS ORDERED: MISOPROSTOL 200 MCG TABLET ONE (14:20)
[2021-05-16] MEDS ORDERED: BENZOCAINE 20% 57 GM BOTTLE TP PRN (14:25)
[2021-05-16] MEDS ORDERED: BISACODYL 10 MG SUPP.RECT RC PRN (14:25)
[2021-05-16] MEDS ORDERED: BENZOCAINE 28 GM HEMORRHOIDAL OINTMENT TP PRN (14:25)
[2021-05-16] MEDS ORDERED: WITCH HAZEL 50% (TUCKS) 40 PAD/JAR PAD TP PRN (14:25)
[2021-05-16] MEDS ORDERED: MISOPROSTOL 100 MCG TABLET PV ONE (14:26)
[2021-05-16] MEDS ORDERED: OXYTOCIN 20 UNITS in 0.9% NS 20 UNIT/1,000 ML INFUS.BAG IV SCH (14:30)
[2021-05-16] MEDS ORDERED: ACETAMINOPHEN 325 MG TABLET (FP) ONE (15:08)
[2021-05-16] MEDS: ACETAMINOPHEN 325 MG TABLET (FP) PO PRN (15:25)
[2021-05-16] MEDS: IBUPROFEN 600 MG TABLET (FP) PO PRN ×2 (18:11→22:47)
[2021-05-17] MEDS: IBUPROFEN 600 MG TABLET (FP) PO PRN ×2 (06:38→20:39)
[2021-05-17 08:16] LABS: BASO % 0.7 % (0-2.0); HEMATOCRIT 38.4 % (32.4-45.2); HEMOGLOBIN 12.5 GM/dL (10.7-15.3); LYMPH % 21.6 % (8-40); MCH 29.3 pg (25.7-33.7); MCHC 32.6 g/dl (32.0-36.0); MEAN CELL VOLUME 89.8 fl (80-96); MEAN PLT VOLUME 10.7 fl (7.5-11.1); MONO % 5.4 % (3.8-10.2); NEUT % 71.3 % (42.8-82.8); PLATELET COUNT 153 10^3/uL (134-434); RBC 4.28 M/mm3 (3.60-5.2); RDW 13.6 % (11.6-15.6); WHITE BLOOD COUNT 12.1 K/mm3 (4.0-10.0)
[2021-05-17] MEDS: ACETAMINOPHEN 325 MG TABLET (FP) PO PRN (13:36)
[2021-05-17 21:16] VITALS: PULSE 76
[2021-05-17] MEDS ORDERED: SENNOSIDES/DOCUSATE COMBO (SENNA PLUS) TABLET (UD) PO PRN (22:00)
[2021-05-18] MEDS: IBUPROFEN 600 MG TABLET (FP) PO PRN (05:58)
[2021-05-18 11:06] VITALS: BP 130/83; TEMP 98
== END 2021-05-18 13:30 | disposition home or self-care (01) | DRG 560 ==
LOC: JDEL 08:13 → JLDR 08:30 → J3W 16:30
PROVIDERS: ADMIT Student in an Organized Health Care Education/Training Program; ATTEND Student in an Organized Health Care Education/Training Program
PROC: 10E0XZZ Delivery of Products of Conception, External Approach (ICD-10-PCS; principal; 2021-05-16)
PROC: 0HQ9XZZ Repair Perineum Skin, External Approach (ICD-10-PCS; 2021-05-16)
PROC: 10907ZC Drainage of Amniotic Fluid, Therapeutic from Products of Conception, Via Natural or Artificial Opening (ICD-10-PCS; 2021-05-16)
DX: O70.0 First degree perineal laceration during delivery (principal); Z3A.40 40 weeks gestation of pregnancy; Z37.0 Single live birth
CPT/HCPCS: 36415; 59025; 59409; 80048; 85025; 85610; 85730; 86780; 86850; 86900; 86901; C9803; G0463-25; U0003; U0005